=== PATIENT | female | born 1985 | race Caucasian/White ===

== ENCOUNTER 2024-01-05 09:10 | Emergency (ER) | payer OTHER ==
[~2024-01-05] VITALS: Ht 165.1 cm; Wt 81.6 kg
[2024-01-05 09:12] VITALS: BP 142/85; PULSE 88; RESP 17; TEMP 98; O2SAT 100
[2024-01-05 09:57] LABS: BASOPHILS # (AUTO) 0.1 K/uL (0.00-0.22); BASOPHILS % (AUTO) 1.1 % (0.0-2.0); EOSINOPHILS % (AUTO) 0.1 % (0.0-4.0); HEMATOCRIT 43.4 % (36-48); HEMOGLOBIN 14.7 g/dL (12.0-16.0); LYMPHOCYTES # (AUTO) 1.8 K/uL (2.5-16.5); LYMPHOCYTES % (AUTO) 23.9 % (20.5-51.1); MEAN CORPUSCULAR HEMOGLOBIN 29 pg (27-31); MEAN CORPUSCULAR HGB CONC 34 g/dL (33-37); MEAN CORPUSCULAR VOLUME 84.2 fL (80-94); MONOCYTES # (AUTO) 0.7 K/uL (0.8-1.0); MONOCYTES % (AUTO) 9.3 % (1.7-9.3); NEUTROPHILS # (AUTO) 4.9 K/uL (1.8-7.7); NEUTROPHILS % (AUTO) 65.6 % (42.2-75.2); PLATELET COUNT (AUTO) 478 K/uL (140-450); RED BLOOD CELL COUNT(AUTO) 5.15 MIL/uL (4.20-5.40); RED CELL DISTRIBUTION WIDTH 14.9 % (11.6-13.7); WHITE BLOOD COUNT (AUTO) 7.5 K/uL (4.8-10.8)
[2024-01-05] MEDS: NACL 0.9% 1,000 ML IV ONE (10:04)
[2024-01-05 10:08] LABS: ANION GAP 13.9 (8-16); CALCIUM 9.3 mg/dL (8.5-10.1); CARBON DIOXIDE 30.6 mmol/L (21-32); CREATININE 0.9 mg/dL (0.6-1.3); POTASSIUM 3.5 mmol/L (3.5-5.1)
[2024-01-05 10:14] LABS: ALANINE AMINOTRANSFERASE 57 U/L (12-78); ALBUMIN 3.6 g/dL (3.4-5.0); ALKALINE PHOSPHATASE 95 U/L (50-136); ASPARTATE AMINOTRANSFERASE 44 U/L (15-37); BILIRUBIN,DIRECT 0.4 mg/dL (0.0-0.3); LIPASE 49 U/L (16-77); TOTAL BILIRUBIN 1.2 mg/dL (0.0-1.0)
[2024-01-05 10:14] LABS: FLU A ANTIGEN NEGATIVE (NEGATIVE); FLU B ANTIGEN NEGATIVE (NEGATIVE)
[2024-01-05] MEDS: ONDANSETRON 4 MG/2 ML VIAL IVP ONE (10:25)
[2024-01-05 10:30] LABS: ACETONE, SERUM Negative (NEGATIVE)
[2024-01-05] MEDS: LORazepam 1 MG TAB PO ONE (11:30)
[2024-01-05 11:49] LABS: BILIRUBIN,URINE NEGATIVE (NEGATIVE); BLOOD, URINE 3+ (NEGATIVE); COLOR,URINE YELLOW (YELLOW); LEUKOCYTE ESTERASE ,URINE NEGATIVE (NEGATIVE); NITRITE, URINE NEGATIVE (NEGATIVE); PH,URINE 7.5 (5.0-9.0); PROTEIN,URINE TRACE (NEGATIVE); UGLUCOSE NEGATIVE (NEGATIVE)
[2024-01-05 11:52] LABS: APPEARANCE,URINE SLIGHTLY HAZY (CLEAR)
[2024-01-05 11:56] LABS: BACTERIA,URINE 1+ /HPF (None Seen); MUCUS,URINE 1+ /LPF (None Seen); SQUAMOUS EPITHELIAL CELL,UR 4-10 (MOD) /LPF (0-3 (FEW)); WBC,URINE 0-5 /HPF (0-5)
[2024-01-05] MEDS ORDERED: AZIT250T4 PO (12:27)
[2024-01-05] MEDS ORDERED: AMOX1TAB8 PO (12:27)
[2024-01-05] MEDS: HYDROXYZINE HYDROCHLORIDE 25 MG TAB PO ONE (12:35)
[2024-01-05 12:37] VITALS: PULSE 82; RESP 23; O2SAT 96
== END 2024-01-05 12:57 | disposition home or self-care (01) ==
LOC: MED 09:10 → EDSEX 09:10 → MED 12:57
DX: J18.9 Pneumonia, unspecified organism (principal); E11.9 Type 2 diabetes mellitus without complications; F32.A Depression, unspecified; F41.9 Anxiety disorder, unspecified; Z20.822 Contact with and (suspected) exposure to COVID-19; Z79.899 Other long term (current) drug therapy
CPT/HCPCS: 36415; 71045; 80048; 80076; 81001; 81025; 82009; 83690; 84484; 85025; 87426; 87804; 93005; 96361; 96374; 99285; J2405; J7030; Q0092